=== PATIENT | male | born 1945 | race Two or more races ===

== ENCOUNTER 2019-05-19 11:12 | Emergency (ER) | payer OTHER ==
[~2019-05-19] VITALS: Ht 167.6 cm; Wt 65.8 kg
[~2019-05-19 11:12] MED LIST: AVAPRO150 MG; PERCOCET 5/3251 TAB PO; SINEMET PO; SYNTHROID50 MCG PO; TENORMIN50 MG; [UNRECOGNIZED DRUG - OTHER] PO
== END 2019-05-19 16:04 | disposition home or self-care (01) ==
LOC: ER 11:12
DX: S20.212A Contusion of left front wall of thorax, initial encounter (principal); W18.09XA Striking against other object with subsequent fall, initial encounter; Y93.89 Activity, other specified; Y92.018 Other place in single-family (private) house as the place of occurrence of the external cause; Y99.8 Other external cause status

== ENCOUNTER → 2019-10-17 | Emergency (ER) | payer OTHER ==
[~2019-10-17] VITALS: Ht 175.3 cm; Wt 65.8 kg
[~2019-10-17] MED LIST changes: +CARBIDOPA-LEVO1 EAC5 PO; +DITROPAN XL10 MG PO
== END | disposition designated cancer center or children's hospital (05) ==
LOC: ER 09:05
DX: S06.5X0A Traumatic subdural hemorrhage without loss of consciousness, initial encounter (principal); J90 Pleural effusion, not elsewhere classified; J98.11 Atelectasis; R05 Cough; R53.1 Weakness; G20 Parkinson's disease; W18.09XA Striking against other object with subsequent fall, initial encounter; Y93.89 Activity, other specified; Y92.018 Other place in single-family (private) house as the place of occurrence of the external cause; Y99.8 Other external cause status